=== PATIENT | male | born 1985 | race African-American/Black ===

== ENCOUNTER 2023-11-24 10:43 | Outpatient (REF) | payer MEDICAID, SELFPAY ==
[2023-11-24 12:06] LABS: Hematocrit 46.5 % (42.0-52.0); Hemoglobin 15.6 g/dl (14.0-18.0); Mean Corpuscular HGB Conc 33.5 g/dl (31.0-36.0); Mean Corpuscular Volume 86.4 fL (80.0-98.0); Mean Platelet Volume 10.4 fL (9.4-12.4); Platelet Count 224 X10*3/uL (160-400); Red Blood Count 5.38 X10*6/uL (4.60-5.80); Red Cell Distribution Width 13.1 % (11.0-16.0); White Blood Count 4.3 X10*3/uL (4.8-10.8)
[2023-11-24 12:34] LABS: Estimated Average Glucose 120 mg/dL; Hemoglobin A1c % 5.8 % (<6.0)
[2023-11-24 12:49] LABS: Alanine Aminotransferase 37 U/L (0-40); Albumin Level 4.3 g/dL (3.5-5.0); Alkaline Phosphatase 73 U/L (39-117); Aspartate Amino Transferase 24 U/L (5-37); Bilirubin Direct 0.2 mg/dL (0.0-0.5); Bilirubin Total 0.5 mg/dL (0.0-1.0); Cholesterol 198 mg/dL (<200); HDL Cholesterol 43 mg/dL (>40); LDL Cholesterol Calculated 137 mg/dL (<100); Total Protein 7.4 g/dL (6.5-8.0); Triglycerides 91 mg/dL (<150)
[2023-11-24 12:59] LABS: Free T4 (Free Thyroxine) 1.02 ng/dL (0.71-1.85); Vitamin D 25-OH Total 19.3 ng/mL (>30)
[2023-11-24 14:33] LABS: CT PCR NOT DETECTED (Not Detect.); NG PCR NOT DETECTED (Not Detect.)
[2023-11-25 04:15] LABS: HBS Num1 0.32 mIU/mL (0-7.99); HBsAGNum1 0.37 S/CO (0.00-0.99); HIV AB/AG Nonreactive (Nonreactive); HIV Num 1 0.05 S/CO (0.00-0.99); Hepatitis B Surface Antigen Negative (Negative); ~HepC Num1 0.12 S/CO (0.00-0.79); ~Hepatitis B Surface Antibody NONREACTIVE (Nonreactive); ~Hepatitis C Antibody Nonreactive (Nonreactive)
[2023-11-26 07:38] LABS: RPR Rapid Plasma Reagin NON-REACTIVE (NON-REACTIVE)
== END 2023-11-24 10:44 | disposition home or self-care (01) ==
LOC: HO.HHCL 10:43
PROVIDERS: Visit Provider Family Medicine
DX: Z00.00 Encounter for general adult medical examination without abnormal findings (principal); D72.819 Decreased white blood cell count, unspecified; K21.9 Gastro-esophageal reflux disease without esophagitis; R73.03 Prediabetes
CPT/HCPCS: 0353U; 36415; 80061; 80076; 82306; 83036; 84439; 84443; 85027; 86592; 86706; 86803; 87340; 87389

== ENCOUNTER 2025-02-26 10:24 | Outpatient (REF) | payer MEDICAID, SELFPAY ==
[2025-02-26 11:35] LABS: Hemoglobin 14.9 g/dl (14.0-18.0); Mean Corpuscular HGB Conc 33.1 g/dl (31.0-36.0); Mean Corpuscular Hemoglobin 28.7 pg (27.0-33.0); Mean Corpuscular Volume 86.5 fL (80.0-98.0); Mean Platelet Volume 10.8 fL (9.4-12.4); Platelet Count 155 X10*3/uL (160-400); Red Cell Distribution Width 13.2 % (11.0-16.0)
[2025-02-26 11:38] LABS: Estimated Average Glucose 123 mg/dL; Hemoglobin A1C 163.0237 umol/L; Hemoglobin A1c % 5.9 % (<6.0); Total Hemoglobin (HGBA1C) 3940.9852 umol/L
--- OUTSIDE RECORDS SUMMARY | 2025-02-26 11:46 | XMS_ITS | Encounter Summary ---
Author Organization [employer] Address [address] [facility] 7t [place] [address] Care Team Providers Care Mason Tender Name Role Phone Mago Taveras DO Primary Care Provider + [phone] Encounter Details Date Type Department Care Team (Late st Contact Info) Description 02/26/2025 9:15 AM EDT Office Visit [facility] [address] [place], [place] [phone] Mago Taveras DO [address] [place], [place] [phone] Routine history and physical examination of adult (Primary Dx); Leukopenia, unspecified type; Chronic GERD; Prediabetes; BMI 31.0-31.9,adult; Encounter for immunization Social History Tobacco Use Types Packs/Day Years Used Date Smoking Tobacco: Former Cigarettes Passive Smoke Exposure: Never Smokeless Tobacco: Never Tobacco Cessation:Counseling Given: Not Answered Alcohol Use Standard Drinks/Week Comments Never 0 (1 standard drink = 0.6 oz pur e alcohol) Depression Answer Date Recorded Patient Health Questionnaire-9 Score 1 02/26/2025 Patient Health Questionnaire-9 Score 1 02/26/2025 Last PHQ-9: Questionnaire Data Not on file 0 02/26/2025 Housing Stability Answer Date Recorded What is your housing situation today? I have apolonia suresh 02/26/[address] you li ve. Do you have problems with any of the following? None of the above 02/26/2025 Food Insecurity Answer Date Recorded Within the past 12 months, y ou worried that your food would run out before you got money to buy more: Never True 02/26/2025 Within the past 12 months,th e food you bought just didn't last and you didn't have enough money to get more: Never True 02/2025 Transportation Answer Date Recorded In the past 12 months, has l ack of transportation kept you from medical appts, meetings, work or from getting things needed for daily living? No 02/26/2025 Utilities Answer Date Recorded In the past 12 months, has t he electric, gas, oil or water company threatened to shut off services in your home? No 02/26/2025 Depression Answer Date Recorded Patient Health Questionnaire-2 Score 0 02/26/2025 Internet Access Answer Date Recorded Internet Access Q1 Yes 02/26/2025 Internet Access Q2 Not on file 02/26/2025 Sex and Gender Information Value Date Recorded Sex Assigned at Male 08/24/2022 10:27 AM EDT Legal Sex Male 10:27 AM EDT Gender Identity Male 08/24/2022 10:27 AM EDT Sexual Orientation Straight 08/24/2022 10 :27 AM EDT documented as of this encounter Last Filed Vital Signs Vital Sign Reading Time Taken Comments Blood Pressure 128/80 02/26/2025 9:24 AM EDT Pulse 81 02/26/2025 9:24 AM EDT Temperature 36.8 ??C (98.3 ??F) 02/26/2025 9:24 AM ED T Respiratory Rate 19 02/26/2025 9:24 AM EDT Oxygen Saturation 99% 02/26/2025 9:24 AM EDT Inhaled Oxygen Concentration - - Weight 104 kg (229 lb) 02/26/2025 9:24 AM EDT Height 180.3 cm (5' 11 ) 02/26/2025 9:24 AM EDT Body Mass Index 31.94 02/26/2025 9:24 AM EDT documented in this encounter Plan of Treatment Upcoming Encounters Date Type Department Care Team (Late st Contact Info) Description 06/28/2025 1:00 PM EDT Office Visit [facility] [address] [place], [place] [phone] Yo, Loyda, OD [address] [place] [address] Scheduled Orders Name Type Priority Associated Diagnoses Orde r Schedule Hepatitis B surface antigen, EIA Lab Routine Routine history and physical examination of adult Leukopenia, unspecified type Chronic GERD Prediabetes BMI 31.0-31.9,adult Expected: 02/26/2025 (Approximate), Expires: 02/26/2026 Chlamydia/N. Gonorrhoeae RNA, TMA, Urogenitial Microbiology Routine Routine history and physical examination of adult Leukopenia, unspecified type Chronic GERD Prediabetes BMI 31.0-31.9,adult Ordered: 02/26/2025 HIV-1/2 Antigen and Antibodies, Fourth Generation, with Reflexes Lab Routine Routine history and physical examination of adult Leukopenia, unspecified type Chronic GERD Prediabetes BMI 31.0-31.9,adult Expected: 02/26/2025 (Approximate), Expires: 02/26/2026 Hepatitis C Antibody with Reflex to HCV, RNA, Quantitative, Real-Time PCR Lab Routine Routine history and physical examination of adult Leukopenia, unspecified type Chronic GERD Prediabetes BMI 31.0-31.9,adult Expected: 02/26/2025, Expires: 02/26/2026 RPR (Monitor) with Reflex to??Titer Lab Routine Routine history and physical examination of adult Leukopenia, unspecified type Chronic GERD Prediabetes BMI 31.0-31.9,adult Expected: 02/26/2025, Expires: 02/26/2026 Hepatitis B Surface Antibody, Qualitative Lab Routine Routine history and physical examination of adult Leukopenia, unspecified type Chronic GERD Prediabetes BMI 31.0-31.9,adult Expected: 02/26/2025 (Approximate), Expires: 02/26/2026 Hepatitis A Antibody, Total Lab Routine Routine history and physical examination of adult Leukopenia, unspecified type Chronic GERD Prediabetes BMI 31.0-31.9,adult Expected: 02/26/2025 (Approximate), Expires: 02/26/2026 Hepatitis B Core Antibody, Total Lab Routine Routine history and physical examination of adult Leukopenia, unspecified type Chronic GERD Prediabetes BMI 31.0-31.9,adult Expected: 02/26/2025 (Approximate), Expires: 02/26/2026 T4, Free Lab Routine Routine history and physical examination of adult Leukopenia, unspecified type Chronic GERD Prediabetes BMI 31.0-31.9,adult Expected: 02/26/2025 (Approximate), Expires: 02/26/2026 Lipid Panel, Standard Lab Routine Routine history and physical examination of adult Leukopenia, unspecified type Chronic GERD Prediabetes BMI 31.0-31.9,adult Expected: 02/26/2025 (Approximate), Expires: 02/26/2026 TSH Lab Routine Routine history and physical examination of adult Leukopenia, unspecified type Chronic GERD Prediabetes BMI 31.0-31.9,adult Expected: 02/26/2025 (Approximate), Expires: 02/26/2026 Vitamin D, 25-Hydroxy, Total, Immunoassay Lab Routine Routine history and physical examination of adult Leukopenia, unspecified type Chronic GERD Prediabetes BMI 31.0-31.9,adult Expected: 02/26/2025 (Approximate), Expires: 02/26/2026 Hepatic Function Panel Lab Routine Routine history and physical examination of adult Leukopenia, unspecified type Chronic GERD Prediabetes BMI 31.0-31.9,adult Expected: 02/26/2025 (Approximate), Expires: 02/26/2026 Basic Metabolic Panel Lab Routine Routine history and physical examination of adult Leukopenia, unspecified type Chronic GERD Prediabetes BMI 31.0-31.9,adult Expected: 02/26/2025 (Approximate), Expires: 02/26/2026 documented as of this encounter Procedures Procedure Name Priority Date/Time Associated Diagnosis Comments CBC Routine 02/26/2025 10:28 AM EDT Routine history and physical examination of adult Leukopenia, unspecified type Chronic GERD Prediabetes BMI 31.0-31.9,adult HEMOGLOBIN A1C Routine 02/26/2025 10:28 AM EDT Routine history and physical examination of adult Leukopenia, unspecified type Chronic GERD Prediabetes BMI 31.0-31.9,adult documented in this encounter Results * (ABNORMAL) CBC (02/26/2025 10:28 AM EDT) Pathologist [facility] White Blood Count 4.0(L) 4.8 - 10.8 X10*3/uL [facility] Red Blood Count 5.20 4.60 - 5.80 X10*6/uL [facility] Hemoglobin 14.9 14.0 - 18.0 g/dl [facility] Hematocrit 45.0 42.0 - 52.0 % [facility] Mean Corpuscular Volume 86.5 80.0 - 98.[address] [facility] Mean Corpuscular Hemoglobin 28.7 27.0 - 33.[address] [facility] Mean Corpuscular HGB Conc 33.1 31.0 - 36.0 g/dl [facility] Red Cell Distribution Width 13.2 11.0 - 16.0 % [facility] Platelet Count 155(L) 160 - 400 X10*3/uL [facility] Mean Platelet Volume 10.8 9.4 - 12.[address] [facility] NRBC Pct Auto 0.0 0.0 - 0.2 /100WBC [facility] NRBC Abs Auto 0.000 0.0 - 0.012 X10*3/uL [facility] Blood Venous blood specimen / Unknown 02/26/2025 10:28 AM EDT 02/26/2025 11:26 AM EDT us Mago Taveras DO LAB BLOOD ORDERABLES Final R esult [facility] [address] [place] [phone] * Hemoglobin A1c (02/26/2025 10:28 AM EDT) Hemoglobin A1c 5.9 <6.0 % [facility] Comment:Hemoglobin A1C Refer ence Range Adults: 4.8 - 6.0 % Non diabetic: < 6.0 % Goal: < 7.0 %Additional Action Suggested: > 8.0 %Note: Hemoglobin A1c results are invalid for patients with abnormal amounts of HbF. Blood transfusions may impact the HbA1c concentration in the patient sample. Estimated Average Glucose 123 mg/dL [facility] Comment:eAG = Estimated ave rage glucose which is %A1C expressed asaverage glucose, using the formula of the [id number] Glucose study (ADAG), Diabetes Care, Vol.31,#8,May. 2007 Blood Venous blood specimen / Unknown 02/26/2025 10:28 AM EDT 02/26/2025 11:26 AM EDT us Mago Taveras DO LAB BLOOD ORDERABLES Final R esult Performing Organization Address City/State/[facility] Co de Phone Number [facility] [address] [place] [phone] documented in this encounter Visit Diagnoses Diagnosis Routine history and physical examination of adult- Primary Leukopenia, unspecified type Chronic GERD Prediabetes Other abnormal glucose BMI 31.0-31.9,adult Encounter for immunization documented in this encounter Additional Health Concerns Assessment Noted Time PHQ-9 Depression Total Score: 1 02/27/20 25 11:07 AM EDT documented as of this encounter Care Teams Mason Tender Relationship Specialty Start Date End Date Mago Taveras DO [address] [place] [phone] PCP - General Family Medicine 01/21/15 documented as of this encounter
--- OUTSIDE RECORDS SUMMARY | 2025-02-26 11:47 | XMS_ITS | Clinical Summary ---
Author Organization [facility] Address [address] [place] [address] Phone Care Team Providers Care Medical Technologist Prn Name Role Phone ArtieMago corley Primary Care Provider [phone] Allergies No known active allergies Medications No known medications Active Problems No known active problems Encounters Date Type Department Care Team Description 02/20/2025 6:23 PM EDT - 02/20/2025 8:57 PM EDT Emergency [facility] [address] [place] [address] Seasonal allergies (Primary Dx); Nasal congestion Discharge Disposition: Home or Self Care from Last 3 Months Social History Tobacco Use Types Packs/Day Years Used Date Smoking Tobacco: Never Assessed Sex and Gender Information Value Date Recorded Sex Assigned at Not on file Legal Sex Male 7:54 AM EST Gender Identity Not on file Sexual Orientation Not on file Obstetrics History Last Filed Vital Signs Vital Sign Reading Time Taken Comments Blood Pressure 135/93 02/20/2025 6:05 PM EDT Pulse 89 02/20/2025 6:05 PM EDT Temperature 36.7 ??C (98.1 ??F) 02/20/2025 6:05 PM ED T Respiratory Rate 16 02/20/2025 6:05 PM EDT Oxygen Saturation 98% 02/20/2025 6:05 PM EDT Inhaled Oxygen Concentration - - Weight 102 kg (225 lb) 02/20/2025 6:05 PM EDT Height 180.3 cm (5' 11 ) 02/20/2025 6:05 PM EDT Body Mass Index 31.38 02/20/2025 6:05 PM EDT Plan of Treatment Health Maintenance Due Date Last Done Comments Hepatitis B Vaccines ( - 19+ 3-dose series) 2006 Social Influencers of Health Screening 09/27/2022 COVID-19 Vaccine ( season) 2024 11/10/2022, 10/13/2021, 03/23/2021, Additional history exists Depression Screening 11/24/2024 11/24/2023 Influenza Vaccine (Season Ended) 2025 11/10/2022, 09/26/2021, 09/09/2020, Additional history exists DTaP,Tdap,and Td Vaccines (2 - Td or Tdap) 07/17/2025 07/17/2015 Cholesterol Screening (Lipid Panel) 11/24/2028 11/24/2023 HIV Screening Completed 11/24/2023 Hepatitis C Screening Completed 11/24/2023 HIB Vaccines Aged Out No longer eligi ble based on patient's age to complete this topic HPV Vaccines Aged Out No longer eligi ble based on patient's age to complete this topic Hepatitis A Vaccines Aged Out No long er eligible based on patient's age to complete this topic IPV Vaccines Aged Out No longer eligi ble based on patient's age to complete this topic MMR Vaccines Aged Out No longer eligi ble based on patient's age to complete this topic Meningococcal ACWY Vaccine Aged Out N o longer eligible based on patient's age to complete this topic Meningococcal B Vaccine Aged Out No l onger eligible based on patient's age to complete this topic Pneumococcal Vaccine: Pediatrics (0 to 5 Years) and At-Risk Patients (6 to 64 Years) Aged Out No longer eligible based on patient's age to complete this topic RSV Immunization Patients Under 20 months Aged Out No longer eligible based on patient's age to complete this topic Varicella Vaccines Aged Out No longer eligible based on patient's age to complete this topic Procedures Procedure Name Priority Date/Time Associated Diagnosis Comments [id number], RSV, FLU A AND B QUALITATIVE RT-PCR, INTERNAL LAB STAT 02/20/2025 6:08 PM EDT from Last 3 Months Results * [id number], RSV, Influenza A and B qualitative RT-PCR (02/20/2025 6:08 PM EDT) Influenza A PCR Not Detected Not Detected LAB MICROBIOLOGY METHOD 02/20/2025 7:34 PM EDT [facility] Influenza B PCR Not Detected Not Detected LAB MICROBIOLOGY METHOD 02/20/2025 7:34 PM EDT [facility] RSV PCR Not Detected Not Detected LAB MICROBIOLOGY METHOD 02/20/2025 7:34 PM EDT [facility] SARS COV-2 Not Detected Not Detected LAB MICROBIOLOGY METHOD 02/20/2025 7:34 PM EDT [facility] Swab Both anterior nares / Unknown Non-blood Collection / Unknown 02/20/2025 6:08 PM EDT 02/20/2025 6:43 PM EDT [facility] - 02/20/2025 7:34 PM EDT Disclaimer: ??Testing was performed using the [employer] GeneXpert Xpress SARS-CoV-2 _Flu_RSV PLUS PCR assay. ??The manner in which this information is used to guide patient care is the responsibility of the healthcare provider. ??Results should be correlated with the clinical history, epidemiological data, and other data available to the clinician evaluating the patient. ??Negative results do not preclude infection. ??This test has been authorized by the FDA under an Emergency Use Authorization (EUA). ??This test is only authorized for the duration of time the declaration that circumstances exist justifying the authorization of the emergency use of in vitro diagnostic tests for detection of SARS-CoV-2 virus and/or diagnosis of COVID-19 infection under section 564 (b) (1) of the Act, 21 U.S.C 360bbb-3 (b) (1), unless the authorization is terminated or revoked sooner. ?? Reference Range: Not Detected Fact sheet for Healthcare providers can be found at https://www.fda.gov/media/110750/download. ?? Fact sheet for Healthcare patients can be found at https://www.fda.gov/media/768615/download. Shmuel Ashton MD LAB MICROBIOLOGY - GENERAL ORDBrittany RANDHAWA Final Result [facility] [address] [place] [address], from Last 3 Months Insurance MEDICAID - [place] Care Teams Medical Technologist Prn Relationship Specialty Start Date End Date Mago Taveras DO [address] [place] [address] PCP - General 11/29/23
--- OUTSIDE RECORDS SUMMARY | 2025-02-26 11:47 | XMS_ITS | Encounter Summary ---
Author Organization [employer] Address [address] [facility] 7t [place] [address] Care Team Providers Care Life Consultant Name Role Phone Mago Taveras DO Primary Care Provider + [phone] Encounter Details Date Type Department Care Team (Latest Contact Info) Description 02/26/2025 Travel Social History Tobacco Use Types Packs/Day Years Used Date Smoking Tobacco: Former Cigarettes Passive Smoke Exposure: Never Smokeless Tobacco: Never Alcohol Use Standard Drinks/Week Comments Never 0 [...] AM EDT documented as of this encounter Plan of Treatment Upcoming Encounters Date Type Department Care Team (Late st Contact Info) Description 06/28/2025 1:00 PM EDT Office Visit [facility] [address] [place] [address] Loyda Ram, OD [address] [place], [place] [phone] documented as of this encounter Visit Diagnoses Not on filedocumented in this encounter Additional Health Concerns Assessment Noted Time PHQ-9 Depression Total Score: 1 02/27/20 25 11:07 AM EDT documented as of this encounter Care Teams Life Consultant Relationship Specialty Start Date End Date Mago Taveras DO [address] [place], [place] [phone] PCP - General Family Medicine 01/21/15 documented as of this encounter
--- OUTSIDE RECORDS SUMMARY | 2025-02-26 11:47 | XMS_ITS | Encounter Summary ---
Author Organization [employer] Address [address] [facility] 7[address] [place] [address] Care Team Providers Care Sliver Former Name Role Phone Mago Taveras DO Primary Care Provider + [phone] Reason for Visit * Reason Comments Med Refill Encounter Details Date Type Department Care Team (Late Contact Info) Description 07/01/2023 Refill [facility] [address] [place] [address] Cherise Welch MD [address] [place] [address] Social History Tobacco Use Types Packs/Day Years Used Date Smoking Tobacco: Former Cigarettes Passive Smoke Exposure: Never Alcohol Use Standard Drinks/Week Comments Never 0 (1 standard drink = 0.6 oz pur e alcohol) Depression Answer Date Recorded Patient Health Questionnaire-9 Score 0 11/10/2022 Depression Answer Date Recorded Patient Health Questionnaire-2 Score 0 11/10/2022 Sex and Gender Information Value Date Recorded Sex Assigned at Male 08/24/2022 10:27 AM EDT Legal Sex Male 10:27 AM EDT Gender Identity Male 08/24/2022 10:27 AM EDT Sexual Orientation Straight 08/24/2022 10 :27 AM EDT documented as of this encounter Plan of Treatment Upcoming Encounters Date Type Department Care Team (Late st Contact Info) Description 06/28/2025 1:00 PM EDT Office Visit [facility] [address] [place] [address] Yo, Loyda, OD [address] [place] [address] documented as of this encounter Visit Diagnoses Not on filedocumented in this encounter Additional Health Concerns Assessment Noted Time PHQ-9 Depression Total Score: 0 11/10/19 23 11:33 AM EST documented as of this encounter Care Teams Sliver Former Relationship Specialty Start Date End Date Mago Taveras DO [address] [place] [address] PCP - General Family Medicine 01/21/15 documented as of this encounter
--- OUTSIDE RECORDS SUMMARY | 2025-02-26 11:47 | XMS_ITS | Encounter Summary ---
Author Organization [facility] Address [address] [place] [address] Care Team Providers Care Director Of Managed Services Name Role Phone Mago Taveras Primary Care Provider [phone] Reason for Visit * Reason Comments Allergies SEASONAL ALLERGIES Encounter Details Date Type Department Care Team (Late st Contact Info) Description 02/20/2025 6:23 PM EDT - 02/20/2025 8:57 PM EDT Emergency [facility] Emergency [address] [place] [phone] Seasonal allergies (Primary Dx); Nasal congestion Discharge Disposition: Home or Self Care Social History Tobacco Use Types Packs/Day Years Used Date Smoking Tobacco: Never Assessed Sex and Gender Information Value Date Recorded Sex Assigned at Not on file Legal Sex Male 7:54 AM EST Gender Identity Not on file Sexual Orientation Not on file documented as of this encounter Last Filed [...] Mass Index 31.38 02/20/2025 6:05 PM EDT documented in this encounter Functional Status * Are you deaf or do you have serious difficulty hearing? Answer Date of Assessment Author No 02/20/2025 6:30 PM EDT Bettie Mejia RN * Are you blind or do you have serious difficulty seeing, even when wearing glasses? Answer Date of Assessment Author No 02/20/2025 6:30 PM EDT Bettie Mejia RN * Do you have serious difficulty walking or climbing stairs? Answer Date of Assessment Author No 02/20/2025 6:30 PM EDT Bettie Mejia RN * Do you have serious difficulty dressing or bathing? Answer Date of Assessment Author No 02/20/2025 6:30 PM EDT Bettie Mejia RN * Because of a physical, mental, or emotional condition, do you have serious difficulty doing errandsalone such as visiting the doctor? Answer Date of Assessment Author No 02/20/2025 6:30 PM EDT Bettie Mejia RN documented as of this encounter Mental Status * Because of a physical, mental, or emotional condition, do you have serious difficulty concentrating, remembering, or making decisions? (5 years old or older) Answer Entry Date Author No 02/20/2025 6:30 PM EDT Bettie Mejia RN documented in this encounter Discharge Instructions * Discharge Instructions* FÁTIMA Pizarro - 02/20/2025 8:49 PM EDT You were evaluated in the emergency department today with congestion. As discussed continue taking Claritin daily. I recommend using Flonase which is a nasal spray. This is available [id number]. Please followup with your primary care provider regarding this visit. Please return to the emergency department if you develop new or worsening symptoms. Thank you for coming to the [facility] Emergency Department today. Our entire team works together to provide you with the best care possible. Examination and treatment you received in the emergency department has been rendered on an EMERGENCY basis only. It is not intended to be a substitute for or an effort to provide complete medical care. You should follow-up with your primary care provider. Please report to your physician any new or remaining problems, because it is impossible to recognize and treat all elements of injury or illness in a single emergency department visit. If you do not have a primary care provider or require a referral, you may contact facilities [facility]. In the event that you're unable to obtain a followup appointment in a timely fashion, OR youare not getting any better, OR you are getting worse, OR you develop any symptoms of concern, please return here immediately for further evaluation. The emergency department is open 24 hours a day, 7days a week. Your discharge report is based on information that was available when you were in the emergency department. If you do not have a primary care provider, please contact one of the following to make arrangements to follow up. [facility] [place] [facility] * Attachments The following attachments cannot be sent through Care Everywhere. * Allergies: Seasonal (Kazakh) * Rhinitis (Kazakh) * Nasal Steroid [place] ([place]azakh) documented in this encounter Discharge Disposition Disposition Code Departure Means Destination Comment s Home or Self Care documented in this encounter Progress Notes * Tara Armstrong RN - 02/20/2025 6:01 PM EDT [place] #[id number] - PT to ED for nasal congestion with difficulty breathing through his nose for the past few days, worse today. PT denies fever, states cough from post nasal drip * FÁTIMA Pizarro - 02/20/2025 5:56 PM EDT Emergency Medicine Note Patient Name: Mati Hernández Initial Evaluation: 02/20/2025 : 1985 Patient's PCP: Mago Taveras DO Emergency Physician: FÁTIMA Pizarro History of Present Illness Chief Complaint: Chief Complaint Patient presents with Allergies SEASONAL ALLERGIES HPI: This is a 39-year-old Kazakh-speaking male no reported past medical history who presents today with complaint of nasal congestion. Patient reports for the past few days he has had significant nasal congestion due to allergies, he states I cannot breathe through my nose . Patient has taken Claritin for the past 2 days however he is still experiencing symptoms. He denies fever, cough or shortnessof breath. He has not follow-up with his primary care provider. ROS: I have performed a ROS with the pertinent positives and negatives documented in the history ofpresent illness. Previous History History reviewed. No pertinent past medical history. History reviewed. No pertinent surgical history. No family history on file. has No Known Allergies. No current facility-administered medications on file prior to encounter. No current outpatient medications on file prior to encounter. Physical Exam ED Triage Vitals [02/20/25 1805] Temp Heart Rate Resp BP 36.7 ??C (98.1 ??F) 89 16 (!) 135/93 SpO2 Temp Source Heart Rate Source Patient Position 98 % Oral -- -- BP Location FiO2 (%) Right arm -- General: Nontoxic-appearing, no acute distress. Awake, calm, cooperative. Eyes: PERRLA, EOMI. Watery discharge from the left eye and some conjunctival injection, no purulentdischarge Nasal: Nasal congestion, no epistaxis Oropharynx: Oral mucosa is moist, speaking complete sentences. Respiratory: lungs clear to auscultation bilaterally, no increased work of breathing. Cardiovascular: regular rate and rhythm MSK: Moving all extremities spontaneously. No edema or deformities noted, ambulatory Neurologic: Awake, alert, and oriented x3. No focal deficits Psychiatric: Appropriate mood and affect Results Vitals: 02/20/25 1805 BP: (!) 135/93 BP Location: Right arm Pulse: 89 Resp: 16 Temp: 36.7 ??C (98.1 ??F) TempSrc: Oral SpO2: 98% Weight: 102 kg (225 lb) Height: 1.803 m (71 ) Labs Reviewed [id number], RSV, FLU A AND B QUALITATIVE RT-PCR, INTERNAL LAB - Normal Result Value Influenza A PCR Not Detected Influenza B PCR Not Detected RSV PCR Not Detected SARS COV-2 Not Detected Narrative: Disclaimer: Testing was performed using the [employer] GeneXpert Xpress SARS-CoV-2 _Flu_RSV PLUS PCR assay. The manner in which this information is used to guide patient care is the responsibility of the healthcare provider. Results should be correlated with the clinical history, epidemiological data,and other data available to the clinician evaluating the patient. Negative results do not preclude infection. This test has been authorized by the FDA under an Emergency Use Authorization (EUA). Thistest is only authorized for the duration of time the declaration that circumstances exist justifying the authorization of the emergency use of in vitro diagnostic tests for detection of SARS-CoV-2 virus and/or diagnosis of COVID-19 infection under section 564 (b) (1) of the Act, 21 U.S.C 360bbb-3 (b) (1), unless the authorization is terminated or revoked sooner. Reference Range: Not Detected Fact sheet for Healthcare providers can be found at https://www.fda.gov/media/382270/download. Fact sheet for Healthcare patients can be found at https://www.fda.gov/media/668241/download. Abnormal Labs Reviewed - No abnormal labs to display No orders to display Differential Diagnosis Seasonal allergies, allergic rhinitis, viral syndrome, allergic conjunctivitis Medical Decision Making 39-year-old male presents with nasal congestion from seasonal allergies. On exam patient alert and oriented no acute distress he is hemodynamically stable and afebrile. He has nasal congestion, thereis some injection and watery discharge from the left eye no purulence no indication of bacterial conjunctivitis. Cardiopulmonary exam is unremarkable. I suspect patient's symptoms are related to the season change i.e. seasonal allergies. I recommend he continues to use Claritin at home I do also recommend Flonase as needed. Medications - No data to display ED Course as of 02/21/25233Feb 20, 20252033 [id number], RSV, Influenza A and B qualitative RT-PCR [BT] ED Course User Index [BT] FÁTIMA Pizarro Clinical Impressions as of 02/21/25233 Seasonal allergies Nasal congestion Procedures Procedures Diagnosis 1. Seasonal allergies 2. Nasal congestion Disposition Discharge ED Prescriptions None Physician Attestation FÁTIMA Pizarro 02/20/252048 FÁTIMA Pizarro 02/21/25233 Cosigned by Nicola Fishman MD at 02/21/2025 9:01 AM EDT documented in this encounter Plan of Treatment Not on file documented as of this encounter Procedures Procedure Name Priority Date/Time Associated Diagnosis Comments [id number], RSV, FLU A AND B QUALITATIVE RT-PCR, INTERNAL LAB STAT 02/20/2025 6:08 PM EDT documented in this encounter Results * [id number], RSV, Influenza A and B qualitative RT-PCR (02/20/2025 6:08 PM EDT) Pathologist [facility] Influenza A PCR Not Detected Not Detected LAB MICROBIOLOGY METHOD 02/20/2025 7:34 PM EDT [facility] Influenza B PCR Not Detected Not Detected LAB MICROBIOLOGY METHOD 02/20/2025 7:34 PM EDT [facility] RSV PCR Not Detected Not Detected LAB MICROBIOLOGY METHOD 02/20/2025 7:34 PM EDT [facility] SARS COV-2 Not Detected Not Detected LAB MICROBIOLOGY METHOD 02/20/2025 7:34 PM EDT [facility] Swab Both anterior nares / Unknown Non-blood Collection / Unknown 02/20/2025 6:08 PM EDT 02/20/2025 6:43 PM EDT Narrative [facility] - 02/20/2025 7:34 PM EDT Disclaimer: ??Testing was performed using the D[employer]I GeneXpert Xpress SARS-CoV-2 _Flu_RSV PLUS PCR assay. [...] for Healthcare providers can be found at https://www.fda.gov/media/865868/download. ?? Fact sheet for Healthcare patients can be found at https://www.fda.gov/media/446968/download. Shmuel Mehran Ashton MD LAB MICROBIOLOGY - GENERAL [place] Final Result [facility] [address] [place] [address], documented in this encounter Visit Diagnoses Diagnosis Seasonal allergies- Primary Allergic rhinitis, cause unspecified Nasal congestion Other diseases of nasal cavity and sinuses documented in this encounter Additional Health Concerns Infection Onset Date Last Indicated Resolved Time Respiratory Rule-Out 02/20/2025 02/20/2025 025 7:34 PM EDT COVID-19 Rule-Out 02/20/2025 02/20/2025 02/20/2025 7:34 PM EDT documented as of this encounter Care Teams Director Of Managed Services Relationship Specialty Start Date End Date Mago Taveras DO [address] [place] [address] PCP - General 11/29/23 documented as of this encounter
--- OUTSIDE RECORDS SUMMARY | 2025-02-26 11:47 | XMS_ITS | Clinical Summary ---
Author Organization [employer] Address [address] [place] [address] Care Team Providers Care City Dispatcher Name Role Phone Mago Taveras DO Primary Care Provider [phone] Allergies No known active allergies Medications Clotrimazole Anti-Fungal 1 % creamIndication s:Onychomycosis APPLY TOPICALLY TWICE DAILY 120 g 1 3 Active omeprazole (PriLOSEC) [address] capsule TAKE 1 CAPSULE BY MOUTH EVERY DAY BEFORE A MEAL 90 capsule 3 4 Active ketoconazole (NIZOral) 2 % cream APPLY PEA SIZED AMOUNT TO TOE NAILS TWICE DAILY 4 Active ibuprofen 800 MG tablet Take 1 tablet (800 mg) by mouth every 6 (six) hours if needed for mild pain. 90 tablet 5 01/16/20 26 Active Active Problems Problem Noted Date Diagnosed Date Myopia 02/26/2025 BMI 32.0-32.9,adult 11/24/2023 Prediabetes 10/30/2022 Chronic gastroesophageal reflux disease 11/22/19 16 Vitamin D deficiency 11/22/2015 History of tear of anterior cruciate ligament Chronic knee pain 11/22/2015 Encounters Date Type Department Care Team Description 02/26/2025 9:15 AM EDT Office Visit [facility] [address] [place] [phone] Mago Taveras DO Routine history and physical examination of adult (Primary Dx); Leukopenia, unspecified type; Chronic GERD; Prediabetes; BMI 31.0-31.9,adult; Encounter for immunization 02/26/2025 Travel 02/19/2025 Patient Outreach [facility] [address] [place] [address] Mago Taveras DO Pre-visit Planning (Pre visit planning LVM ) 01/15/2025 10:00 AM EDT Office Visit [facility] [address] [place] [address] Enma Miller MD Strep pharyngitis 01/05/2025 Population Health Risk Score [facility] [address] [place] [phone] Provider, Population Health Generic 12/22/2024 11:00 AM EST Office Visit [facility] [address] [place] [address] Yo, Loyda, OD RPE mottling of macula (Primary Dx) 12/22/2024 Travel 12/20/2024 Telephone [facility] [address] [place] [address] Mago Taveras DO Recall Appt. Reschedule 12/20/2024 Telephone [facility] [address] [place] [address] Mago Taveras DO Recall Appt. 12/20/2024 Travel from Last 3 Months Immunizations Name Administration Dates Next Due Influenza injectable quadriv alent IIV4 with preservative 08/17/2016,07/17/2015 Influenza injectable quadriv alent preservative free 11/10/2022,09/26/2021,09/09/2020,2018 Pfizer Covid-19 Vaccine 12+ Bivalent 11/10/2022 Tdap 02/26/2025,07/17/2015 Family History Medical History Relation Name Comments Heart disease Father Hypertension Father Stroke Father Diabetes Mother Hypertension Mother Diabetes Sister 1 Diabetes Sister 2 Relation Name Status Comments Father Mother Sister 1 Sister 2 Alive Social History Tobacco Use Types Packs/Day Years [...] Orientation Straight 08/24/2022 10 :27 AM EDT Last Filed Vital Signs Vital Sign Reading [...] Mass Index 31.94 02/26/2025 9:24 AM EDT Plan of Treatment Upcoming Encounters Date Type Department Care Team (Late st Contact Info) Description 06/28/2025 1:00 PM EDT Office Visit [facility] [address] [place] [address] Loyda Ram, OD [address] [place] [address] Health Maintenance Due Date Last Done Comments Family Planning (PISQ) 2002 Hepatitis B Vaccines (1 of 3 - 19+ 3-dose series) 2006 COVID-19 Vaccine ( season) 2024 11/10/2022, 10/13/2021, 03/23/2021, Additional history exists Influenza Vaccine (#1) 2024 , 09/26/2021, 09/09/2020, Additional history exists Diabetes: Hemoglobin A1C 11/24/2024 025, 11/24/2023, 11/24/2023, Additional history exists Alcohol/Substance Use Screening 02/26/2026 02/26/2025 Depression Screening 02/26/2026 02/26/2025, 02/27/20 25 SDOH Screening 02/26/2026 02/26/2025 Tobacco Screening 02/26/2026 02/26/2025 Lipid Panel 11/24/2028 11/24/2023, 10/26, 09/26/2021 DTaP/Tdap/Td Vaccines (3 - Td or Tdap) 02/26/2035 02/26/2025, 07/17/2015 Zoster Vaccines (1 of 2) 2037 RSV Patients and Patients Aged 60 years or older (1 - 1-dose 75+ series) 2062 HIV Screening Completed 11/24/2023, 10/26, 09/26/2021 Hepatitis C Screening Completed 11/24/2023 , 11/13/2022, 09/26/2021 HIB Vaccines Aged Out No longer eligi [...] patient's age to complete this topic Meningococcal Vaccine Aged Out No rashawn estrellita eligible based on patient's age to complete this topic Pneumococcal Vaccine: Pediatrics (0 to 5 Years) and At-Risk Patients (6 to 49) Years) Aged Out No longer eligible based on patient's age to complete this topic RSV under 20 months Aged Out No longe r eligible based on patient's age to complete this topic Rotavirus Vaccines Aged Out No longer eligible based [...] unspecified type Chronic GERD Prediabetes BMI 31.0-31.9,adult POCT RAPID COVID ANTIGEN Routine 01/15/2025 10:12 AM EDT Strep pharyngitis POCT INFLUENZA B (ID NOW RAPID MOLECULAR) Routine 01/15/2025 10:12 AM EDT Strep pharyngitis POCT INFLUENZA A (ID NOW RAPID MOLECULAR) Routine 01/15/2025 10:12 AM EDT Strep pharyngitis POCT RAPID STREP A Routine 01/15/2025 10 :11 AM EDT Strep pharyngitis OCT, RETINA - OU - BOTH EYES Routine 12/22/2024 11:00 AM EST RPE mottling of macula HEPATITIS C AB W/REFL TO HCV RNA, QN, PCR Routine 11/24/2023 10:48 AM EST Routine history and physical examination of adult Leukopenia, unspecified type Chronic GERD Prediabetes HIV 1/2 ANTIGEN/ANTIBODY, FOURTH GENERATION W/RFL Routine 11/24/2023 10:48 AM EST Routine history and physical examination of adult Leukopenia, unspecified type Chronic GERD Prediabetes LIPID PANEL, STANDARD Routine 11/24/2023 10:48 AM EST Routine history and physical examination of adult Leukopenia, unspecified type Chronic GERD Prediabetes from Last 3 Months or Most Recently Relevant to Health Maintenance Results * (ABNORMAL) CBC (02/26/2025 10:28 AM EDT) White Blood Count 4.0(L) 4.8 - 10.8 X10*3/uL [facility] Red Blood Count 5.20 4.60 - 5.80 X10*6/uL [facility] Hemoglobin 14.9 14.0 - 18.0 g/dl [facility] Hematocrit 45.0 42.0 - 52.0 % [facility] Mean Corpuscular Volume 86.5 80.0 - 98.0 fL [facility] Mean Corpuscular Hemoglobin 28.7 27.0 - 33.0 pg [facility] Mean Corpuscular HGB Conc 33.1 31.0 - 36.0 g/dl [facility] Red Cell Distribution Width 13.2 11.0 - 16.0 % [facility] Platelet Count 155(L) 160 - 400 X10*3/uL [facility] Mean Platelet Volume 10.8 9.4 - 12.4 fL [facility] NRBC Pct Auto 0.0 0.0 - 0.2 /100WBC [facility] NRBC Abs Auto 0.000 0.0 - 0.012 X10*3/uL [facility] Blood Venous blood specimen / Unknown 02/26/2025 10:28 AM EDT 02/26/2025 11:26 AM EDT us Mago Taveras DO LAB BLOOD ORDERABLES Final R esult [facility] [address] [place] [phone] * Hemoglobin A1c (02/26/2025 10:28 AM EDT) Hemoglobin A1c 5.9 <6.0 % [facility] Comment:Hemoglobin A1C Refer ence Range Adults: 4.8 - 6.0 % Non diabetic: < 6.0 % Goal: < 7.0 %Additional Action Suggested: > 8.0 %Note: Hemoglobin A1c results are invalid for patients with abnormal amounts of HbF. Blood transfusions may impact the HbA1c concentration in the patient sample. Estimated Average Glucose 123 mg/dL [facility] Comment:eAG = Estimated ave rage glucose which is %A1C expressed asaverage glucose, using the formula of the Z5T-BqwhnpqAhncapi Glucose study (ADAG), Diabetes Care, Vol.31,#8,May. 2007 Blood Venous blood specimen / Unknown 02/26/2025 10:28 AM EDT 02/26/2025 11:26 AM EDT Mago Taveras DO LAB BLOOD ORDERABLES Final R esult [facility] [address] [place] [phone] * Influenza B (ID NOW Rapid Molecular) (01/15/2025 10:12 AM EDT) Pathologist [facility] Influenza B Negative Negative, Indeterminate [facility] Swab 01/15/2025 10:1 2 AM EDT Brandi Hinson SENIOR COMPLIANCE ANALYST POINT OF CARE TEST ENTER/EDIT O RDERABLES Final Result Performing Organization Address [facility]/ZIP Co de Phone Number [facility] [address] [place] [phone] * Influenza A (ID NOW Rapid Molecular) (01/15/2025 10:12 AM EDT) Pathologist [facility] Influenza A Negative Negative, Indeterminate [facility] Swab 01/15/2025 10:1 2 AM EDT Brandi Hinson SENIOR COMPLIANCE ANALYST POINT OF CARE TEST ENTER/EDIT O RDERABLES Final Result [facility] [address] [place] [phone] * POCT Rapid COVID Ag (01/15/2025 10:12 AM EDT) [facility] Rapid COVID Ag Negative Swab 01/15/2025 10:1 2 AM EDT Brandi Hinson SENIOR COMPLIANCE ANALYST POINT OF CARE TEST ENTER/EDIT O RDERABLES Final Result * (ABNORMAL) POCT rapid strep A manually resulted (01/15/2025 10:11 AM EDT) [facility] Rapid Strep A Screen Positive( A) Negative, None Detected Swab 01/15/2025 10:1 1 AM EDT Brandi Hinson NP POINT OF CARE TEST ENTER/EDIT O RDERABLES Final Result * Hepatitis C Antibody with Reflex to HCV, RNA, Quantitative, Real-Time PCR (11/24/2023 10:48 AM EST) [facility] Hepatitis C Antibody Nonreactive Nonreactive [facility] Comment:Antibodies to HCV no t detected; does not exclude early acuteHCV infection. Blood Venous blood specimen / Unknown 11/24/2023 10:48 AM EST 11/24/2023 11:43 AM EST Mago Taveras DO LAB BLOOD ORDERABLES Final R esult [facility] [address] [place] [phone] * HIV-1/2 Antigen and Antibodies, Fourth Generation, with Reflexes (11/24/2023 10:48 AM EST) HIV AB/AG Nonreactive Nonreactive [facility] Comment:HIV-1 p24 Ag and/or HIV-1/HIV-2 Ab not detected.A test result that is nonreactive does not exclude thepossibility of exposure to or infection with HIV-1 and/orHIV-2. Nonreactive results in this assay for individualswith prior exposure to HIV-1 and/or HIV-2 may be due toantigen and antibody levels that are below the limit ofdetection of this assay.The [employer] HIV Ag/Ab Combo assay result andsupplemental assay results should be interpreted inconjunction with the patient's clinical presentation,history and other laboratory results. If the results areinconsistent with clinical evidence, additional testing issuggested to confirm the result. Blood Venous blood specimen / Unknown 11/24/2023 10:48 AM EST 11/24/2023 11:43 AM EST us Mago Taveras DO LAB BLOOD ORDERABLES Final R esult [facility] [address] [place], [place] [phone] * (ABNORMAL) Lipid Panel, Standard (11/24/2023 10:48 AM EST) Triglycerides 91 <150 mg/dL [facility] Comment:Desirable Triglyceri de: less than 150 mg/dLBorderline High Triglyceride 150-199 mg/dLHigh Triglyceride: 200-499 mg/dLVery High Triglyceride: greater than or equal to 5OO mg/dL Cholesterol 198 <200 mg/dL [facility] Comment:Desirable Cholestero l: less than 200 mg/dLBorderline High Cholesterol: 200-239 mg/dLHigh Cholesterol: greater than 239 mg/dL LDL Cholesterol Calculated 137(H) <100 mg/dL [facility] Comment:Desirable LDL: less than 100 mg/dLNear Optimal/Above Optimal LDL: 110- 129 mg/dLBorderline High LDL: 130-159 mg/dLHigh LDL: 160-189 mg/dLVery High LDL: greater than or equal to 190 mg/dL HDL Cholesterol 43 >40 mg/dL [facility] Comment:Desirable HDL: great er than 40 mg/dL Note: This HDL assay may give artificially low results in patients with liver disease. Blood Venous blood specimen / Unknown 11/24/2023 10:48 AM EST 11/24/2023 11:43 AM EST Mago Taveras DO LAB BLOOD ORDERABLES Final R esult [facility] [address] [place] [phone] from Last 3 Months or Most Recently Relevant to Health Maintenance Insurance [address] [place], [place] [address] Care Teams City Dispatcher Relationship Specialty Start Date End Date Mago Taveras DO [address] [place] [address] PCP - General Family Medicine 01/21/15
[2025-02-26 12:35] LABS: Alanine Aminotransferase 30 U/L (0-40); Albumin Level 4.3 g/dL (3.5-5.0); Alkaline Phosphatase 74 U/L (39-117); Anion Gap 11 (12-20); Aspartate Amino Transferase 24 U/L (5-37); Bilirubin Direct 0.2 mg/dL (0.0-0.5); Bilirubin Total 0.5 mg/dL (0.0-1.0); Blood Urea Nitrogen 13 mg/dL (9-16); Calcium 9.1 mg/dL (8.4-10.2); Carbon Dioxide 28 mmol/L (22-29); Chloride 105 mmol/L (96-108); Cholesterol 196 mg/dL (<200); Estimated Glomerular Filt Rate > 60; Free T4 (Free Thyroxine) 1.08 ng/dL (0.71-1.85); Glucose Random 96 mg/dL (60-115); HBS Num1 0.17 mIU/mL (0-7.99); HBc Num1 0.12 S/CO (0.00-0.79); HBsAGNum1 0.35 S/CO (0.00-0.99); HIV AB/AG Nonreactive (Nonreactive); HIV Num 1 0.06 S/CO (0.00-0.99); Hepatitis B Core Antibody Nonreactive (Nonreactive); Hepatitis B Surface Antigen Negative (Negative); Potassium 4.1 mmol/L (3.3-5.1); Sodium 140 mmol/L (135-145); Thyroid Stimulating Hormone 1.71 uIU/mL (0.32-4.0); Total Protein 7.3 g/dL (6.5-8.0); Triglycerides 48 mg/dL (<150); Vitamin D 25-OH Total 25.5 ng/mL (>30); ~HepC Num1 0.12 S/CO (0.00-0.79); ~Hepatitis B Surface Antibody NONREACTIVE (Nonreactive); ~Hepatitis C Antibody Nonreactive (Nonreactive)
[2025-02-26 12:47] LABS: HDL Cholesterol 51 mg/dL (>40); LDL Cholesterol Calculated 136 mg/dL (<100)
[2025-02-26 13:59] LABS: CT PCR NOT DETECTED (Not Detect.); NG PCR NOT DETECTED (Not Detect.)
[2025-02-27 11:48] LABS: RPR Rapid Plasma Reagin NON-REACTIVE (NON-REACTIVE)
[2025-03-01 03:57] LABS: Hepatitis A Antibody IgG Nonreactive (Nonreactive); ~Hepatitis A Antibody IgG 0.47 S/CO (0.00-0.99)
== END 2025-02-26 10:25 | disposition home or self-care (01) ==
LOC: HO.HHCL 10:24
PROVIDERS: Visit Provider Family Medicine
DX: Z00.00 Encounter for general adult medical examination without abnormal findings (principal); D72.819 Decreased white blood cell count, unspecified; K21.9 Gastro-esophageal reflux disease without esophagitis; R73.03 Prediabetes; Z68.31 Body mass index [BMI] 31.0-31.9, adult
CPT/HCPCS: 80048; 80061; 80076; 82306; 83036; 84439; 84443; 85027; 86592; 86704; 86706; 86708; 86803; 87340; 87389; 87491; 87591